=== PATIENT | female | born 2000 | race African-American/Black ===

== ENCOUNTER 2022-10-25 23:56 | Emergency (ER) | payer OTHER, SELFPAY ==
[2022-10-26] MEDS ORDERED: metroNIDAZOLE 500 MG TAB ONE (00:17)
[2022-10-26] MEDS ORDERED: Fluconazole 100 MG TAB PO SCH (00:30)
[2022-10-26 15:33] LABS: Chlamydia by PCR, Vaginal Swab Not Detected (NotDetected); GC by PCR, Vaginal Swab Not Detected (NotDetected); Tric.vaginalis PCR,Vaginal Sw Not Detected (NotDetected)
== END 2022-10-26 00:34 | disposition home or self-care (01) ==
LOC: CSHERS 23:56
DX: N76.0 Acute vaginitis (principal); B37.31 Acute candidiasis of vulva and vagina
CPT/HCPCS: 87491; 87591; 87661; 99283

== ENCOUNTER 2022-12-08 23:29 | Emergency (ER) | payer OTHER ==
[2022-12-09] MEDS ORDERED: Fluconazole 100 MG TAB PO SCH (00:45)
[2022-12-10 00:20] LABS: Chlamydia by PCR, Vaginal Swab Not Detected (NotDetected); GC by PCR, Vaginal Swab Not Detected (NotDetected)
== END 2022-12-09 01:51 | disposition home or self-care (01) ==
LOC: CSHERS 23:29
DX: B37.31 Acute candidiasis of vulva and vagina (principal)
CPT/HCPCS: 87480; 87491; 87510; 87591; 87660; 99283

== ENCOUNTER 2024-11-17 22:13 | Emergency (ER) | payer OTHER ==
[2024-11-17 22:59] LABS: Glucose, Urine (Dipstick) Normal (Negative); Leukocyte 100 (Negative); Protein, Urine (Dipstick) 30 mg/dl (Neg-Trace); Specific Gravity, Urine 1.020 (1.005-1.030)
[2024-11-17 23:10] LABS: Bacteria/HPF None Seen HPF (None Seen); CAUTI Indications for Culture Pelvic or flank pain; RBC/HPF 0-3 HPF (0-3); WBC/HPF 0-3 HPF (0-3)
[2024-11-17 23:11] LABS: Urine Culture Reflex No No
== END 2024-11-17 23:50 | disposition home or self-care (01) ==
LOC: CSHERS 22:13
DX: O21.9 Vomiting of pregnancy, unspecified (principal); Z3A.10 10 weeks gestation of pregnancy
CPT/HCPCS: 76801; 76856; 81001; 93976; Q0162

== ENCOUNTER 2025-03-07 23:00 | Emergency (ER) | payer MEDICAID, OTHER | END 2025-03-08 01:12 | disposition home or self-care (01) | LOC: CSHERS 23:00 | DX: O99.512 Diseases of the respiratory system complicating pregnancy, second trimester (principal); J06.9 Acute upper respiratory infection, unspecified; B97.89 Other viral agents as the cause of diseases classified elsewhere; Z3A.25 25 weeks gestation of pregnancy | CPT/HCPCS: 71045; 87428; 93005; 93010 ==